=== PATIENT | male | born 1965 | race Hispanic/Latino ===

== ENCOUNTER 2021-07-30 09:59 | Outpatient (CLI) | payer OTHER ==
--- NOTE | 2021-07-30 11:11 | XRay Report ---
XR knee BILAT 1-2V INDICATION / CLINICAL INFORMATION: BILATERAL KNEE PAIN. COMPARISON: None available. FINDINGS: BONES/JOINT(S): No acute fracture or subluxation. Mild bilateral tricompartmental osteoarthritis. SOFT TISSUES: No significant abnormality. ADDITIONAL FINDINGS: None. Signer Name: Brendon Sharma MD Signed: 07/30/2021 11:06 AM Workstation Name: [id number]
== END 2021-07-30 10:00 | disposition home or self-care (01) ==
LOC: XRAY 09:59
PROVIDERS: ATTEND Internal Medicine
DX: M17.0 Bilateral primary osteoarthritis of knee (principal)